=== PATIENT | female | born 1990 | race Caucasian/White ===

== ENCOUNTER 2017-02-06 07:15 | Emergency (ER) | payer SELFPAY ==
[~2017-02-06] VITALS: Ht 162.6 cm; Wt 68.0 kg
[2017-02-06 08:04] LABS: HEMATOCRIT 38.8 % (36.0-48.0); HEMOGLOBIN 13.5 g/dL (12.0-16.0); MEAN CORPUSCULAR HEMOGLOBIN 30.5 pg (28.0-32.0); MEAN CORPUSCULAR VOLUME 87.9 fL (81.0-99.0); PLATELET 288 x1000/uL (130-400); RED BLOOD CELL COUNT 4.42 mill/uL (4.2-5.4); RED CELL DISTRIBUTION WIDTH 14.7 % (11.6-14.6)
[2017-02-06 08:08] LABS: CHLORIDE 103 mEq/L (98-107)
[2017-02-06 08:13] LABS: CARBON DIOXIDE 22 mEq/L (21-32); ETHANOL BLOOD < 10 mg/dL
[2017-02-06 09:33] LABS: CLARITY URINE CLEAR (CLEAR); COLOR URINE YELLOW (YELLOW); GLUCOSE URINE NEGATIVE (NEGATIVE); KETONES URINE 3+ (NEGATIVE); LEUKOCYTE ESTERASE URINE 2+ (NEGATIVE); NITRITE URINE NEGATIVE (NEGATIVE); OCCULT BLOOD URINE NEGATIVE (NEGATIVE); PROTEIN URINE NEGATIVE (NEGATIVE); SPECIFIC GRAVITY URINE 1.016 (1.005-1.030)
[2017-02-06 09:48] LABS: *BARBITURATES SCREEN URINE NEGATIVE (NEGATIVE); *BENZODIAZEPINES SCREEN URINE NEGATIVE (NEGATIVE); *COCAINE SCREEN URINE NEGATIVE (NEGATIVE); METHADONE URINE SCREEN NEGATIVE (NEGATIVE); OPIATES URINE SCREEN NEGATIVE (NEGATIVE); PHENCYCLIDINE URINE SCREEN NEGATIVE (NEGATIVE)
[2017-02-06 09:54] LABS: *AMPHETAMINES SCREEN URINE PRESUMTIVE POSITIVE (NEGATIVE); CANNABINOID URINE SCREEN PRESUMTIVE POSITIVE (NEGATIVE)
[2017-02-06] MEDS ORDERED: LORAZEPAM 1MG TABLET PO ONE (13:30)
[2017-02-06] MEDS ORDERED: LORAZEPAM 2MG/ML CPJ IM ONE (13:30)
[2017-02-06] MEDS ORDERED: DIPHENHYDRAMINE 50MG/ML VIAL IV ONE (14:30)
[2017-02-06] MEDS ORDERED: LORAZEPAM 2MG/ML CPJ IV ONE (14:30)
[2017-02-06] MEDS ORDERED: OLANZAPINE 10 MG/VIAL IM ONE (14:30)
[2017-02-07 11:16] VITALS: BP 108/72
== END 2017-02-07 11:49 | disposition left against medical advice (07) ==
LOC: ER 07:27
DX: F12.10 Cannabis abuse, uncomplicated (principal); F15.10 Other stimulant abuse, uncomplicated; N39.0 Urinary tract infection, site not specified; F31.81 Bipolar II disorder
CPT/HCPCS: 36415; 80048; 80305; 81001; 85027; 96372; 99284; G0482; J2060; J3490; Z7610